=== PATIENT | female | born 1975 | race Caucasian/White ===

== ENCOUNTER 2020-03-26 13:14 | Emergency (ER) | payer OTHER ==
[~2020-03-26] VITALS: Ht 165.1 cm; Wt 127.0 kg
[2020-03-26] MEDS ORDERED: ONDANSETRON HCL INJ 2MG/ML 2ML 2 MG/ML VIAL ONE (13:59)
[2020-03-26] MEDS ORDERED: SODIUM CHLORIDE 0.9% 1000ML 1,000 ML ONE (13:59)
[2020-03-26] MEDS ORDERED: MORPHINE SULFATE 2 MG/ML SYR 1ML IV STA (14:06)
[2020-03-26] MEDS ORDERED: ONDANSETRON HCL INJ 2MG/ML 2ML 2 MG/ML VIAL IV NR (14:15)
[2020-03-26] MEDS ORDERED: MORPHINE SULFATE INJ 4 MG/ML INJ 1ML ONE (14:37)
--- NOTE | 2020-03-26 15:06 | Diagnostic Imaging Report ---
EXAMINATION: CXR 1 W - [facility] INDICATION: Pain, cough. COMPARISON: Same day CT abdomen/pelvis. FINDINGS: TUBES and LINES: None. LUNGS: Lungs are mildly hypoinflated. Mild patchy bibasilar opacities. Mild bronchial wall thickening. PLEURA: No pleural effusion or pneumothorax. HEART AND MEDIASTINUM: The cardiomediastinal silhouette is unremarkable. BONES AND SOFT TISSUES: No acute osseous lesion. Soft tissues are unremarkable. UPPER ABDOMEN: No free air under the diaphragm. IMPRESSION: Mild patchy bibasilar opacities, compatible with atypical/viral pneumonia seen on same day abdominal CT. Signed by: Dr. Sophie Mares MD on 03/26/2020 3:03 PM
--- NOTE | 2020-03-26 15:12 | Diagnostic Imaging Report ---
EXAM: CT Abdomen and Pelvis without contrast INDICATION: Abdominal Pain COMPARISON: None. TECHNIQUE: Abdomen and pelvis were scanned utilizing a multidetector helical scanner from the lung base to the pubic symphysis without administration of IV contrast. Coronal and sagittal reformations were obtained. Renal stone protocol was performed. IV CONTRAST: None. ORAL CONTRAST: None. COMPLICATIONS: None RADIATION DOSE: Total DLP: 1394 mGy*cm Estimated effective dose: (DLP x 0.015 x size factor) mSv CTDIvol has been reviewed. It is below the limits set by the Radiation Protocol Committee (RPC). FINDINGS: LINES and TUBES: None. LOWER THORAX: There are peripheral predominant patchy groundglass opacities in the bilateral dependent lungs. HEPATOBILIARY: No evidence of focal lesion. No biliary ductal dilation. GALLBLADDER: No radio-opaque stones or sludge. No wall thickening. SPLEEN: No splenomegaly. Calcified splenic granulomas. PANCREAS: No focal masses or ductal dilatation. ADRENALS: No adrenal nodules KIDNEYS/URETERS: No evidence of hydronephrosis, solid mass, or stone. Punctate left renal hypodensities are too small to characterize, but likely represent cysts. GI TRACT: No evidence of wall thickening or distension. Appendix is normal. Small hiatal hernia. PELVIC ORGANS/BLADDER: Unremarkable. LYMPH NODES: No lymphadenopathy. VESSELS: Unremarkable. PERITONEUM / RETROPERITONEUM: No free air or fluid. BONES AND SOFT TISSUES: Unremarkable. CONCLUSION: Findings of atypical/viral pneumonia. No acute CT abnormality in the abdomen or pelvis. Signed by: Dr. Sophie Mares MD on 03/26/2020 3:09 PM
--- NOTE | 2020-03-26 15:48 | Emergency Department Note ---
History of Present Illnes History of Present Illness Chief Complaint: COVID PUI History of Present Illness This is a 44 year old female . Chief Complaint Comment Reports that 5 family members have covid and she was tested at [facility] on the and is awaiting results. Pt now has headache, no smell or taste, sore throat, chest burning, congestion with nausea, vomiting and diarrhea since yesterday and it is getting worse today and she states that she feels terrible. Historian: Patient Arrival Mode: Car Onset (how long ago): day(s) (2) Location: epigastric Quality: dull Severity: moderate Onset quality: gradual Duration (how long): day(s) (2) Timing of current episode: constant Progression: waxing and waning Chronicity: new Context: Denies recent illness, Denies recent surgery, Denies recent im mobilization, Denies recent travel, Denies trauma/injury, Denies new medications, Denies hx of DVT/PE, Denies non-compliance w/ medications, Denies other Relieving factors: none Exacerbating factors: none Associated symptoms: Reports denies other symptoms Treatments prior to arrival: none Past Medical/Family History Physician Review I have reviewed the patient's past medical and family history. Any updates have been documented here. Past Medical History Recent Fever: No Clinical Suspicion of Infectio: No New/Unexplained Change in Ment: No Past Medical History: Asthma Past Surgical History: Hysterectomy, T&A Other Surgery: bilateral ACL repairs Social History Smoking Cessation: Never Smoker Counseling Performed: No Alcohol Use: None Any Illegal Drug Use: No TB Exposure/Symptoms: No Physically hurt or threatened: No Family History Family history of heart diseas: No Other Any Pre-Existing Lines (PICC,: No Is patient up to date on immun: Yes Last Flu: none Last Pneumovax: none Review of Systems Review of Systems Constitutional: Reports no symptoms EENTM: Reports no symptoms Cardiovascular: Reports no symptoms Respiratory: Reports no symptoms Gastrointestinal: Reports as per HPI Genitourinary: Reports no symptoms Musculoskeletal: Reports no symptoms Integumentary: Reports no symptoms Neurological: Reports no symptoms Psychological: Reports no symptoms Endocrine: Reports no symptoms Hematological/Lymphatic: Reports no symptoms Physical Exam Related Data Allergies: Coded Allergies: prednisone (Verified Allergy, Severe, anaphylaxis, 03/26/20) Uncoded Allergies: bandaids (Adverse Reaction, Intermediate, rash/hives, 03/26/20) Triage Vital Signs Vital Signs Date Time Temp Pulse Resp B/P (MAP) Pulse Ox O2 Delivery O2 Flow Rate FiO2 03/26/20 13:42 98.5 128 20 111/96 100 Vital signs reviewed: Yes Physical Exam CONSTITUTIONAL Constitutional: Present well-developed, Present well-nourished HENT HENT: Present normocephalic, Present atraumatic, Present oropharynx sagar ar/moist, Present nose normal HENT L/R: Present left ext ear normal, Present right ext ear normal EYES Eyes: Reports PERRL, Reports conjunctivae normal NECK Neck: Present ROM normal PULMONARY Pulmonary: Present effort normal, Present breath sounds normal CARDIOVASCULAR Cardiovascular: Present regular rhythm, Present heart sounds normal, Present capillary refill normal, Present normal rate GASTROINTESTINAL Abdominal: Present soft, Present bowel sounds normal, Present tender (epigastric) GENITOURINARY Genitourinary: Present exam deferred SKIN Skin: Present warm, Present dry MUSCULOSKELETAL Musculoskeletal: Present ROM normal NEUROLOGICAL Neurological: Present alert, Present oriented x 3, Present no gross motor or sensory deficits PSYCHOLOGICAL Psychological: Present mood/affect normal, Present judgement normal Results Laboratory Lab results reviewed: Yes Imaging Imaging results reviewed: Yes Assessment & Plan Medical Decision Making MDM gastritis obstruction Reassessment Reassessment time: 15:47 Reassessment better Assessment & Plan Final Impression: (1) Abdominal pain (2) Vomiting (3) Diarrhea Depart Disposition: HOME, SELF-CARE Last Vital Signs Date Time Temp Pulse Resp B/P (MAP) Pulse Ox O2 Delivery O2 Flow Rate FiO2 03/26/20 15:30 101 18 111/66 98 03/26/20 13:42 98.5 Medications in the ED Ondansetron HCl 4 mg STK-MED ONCE .ROUTE ; Start 03/26/20 at 13:59; Stop 03/26/20 at 13:54; Status DC Sodium Chloride 1,000 ml @ STK-MED ONCE .ROUTE ; Start 03/26/20 at 13:59; Stop 03/26/20 at 13:54; Status DC Ondansetron HCl 4 mg NOW IV Last administered on 03/26/20at 14:07; Admin Dose 4 MG; Start 03/26/20 at 14:15; Stop 03/26/20 at 15:59 Morphine Sulfate 2 mg NOW STAT IV Last administered on 03/26/20at 14:07; Admin Dose 2 MG; Start 03/26/20 at 14:06; Stop 03/26/20 at 14:16; Status DC Morphine Sulfate 4 mg STK-MED ONCE .ROUTE ; Start 03/26/20 at 14:37; Stop 03/26/20 at 14:33; Status DC SERVANDO SAMAYOA MD Mar 26, 2020 15:48
[2020-03-26 15:59] VITALS: BP 119/61
== END 2020-03-26 16:08 | disposition home or self-care (01) ==
LOC: FSED 13:14
DX: R10.13 Epigastric pain (principal); R11.2 Nausea with vomiting, unspecified; R19.7 Diarrhea, unspecified; J45.909 Unspecified asthma, uncomplicated
CPT/HCPCS: 71045; 74176; 80048; 80076; 81003; 81025; 85025; 96374; 96375; 99284; J2270 ×2; J2405; J7030

== ENCOUNTER → 2021-04-20 | Day surgery (SDC) | payer BC, OTHER ==
[~2021-04-20] MED LIST: BUPIVACAINE HCL 0.5% INJ 30 ML VIAL INJ ONE; FENTANYL CITRATE/PF 100MCG/2 ML INJ ONE; LIDOCAINE 1% W/EPINEPHRINE 20 ML VIAL ONE; LIDOCAINE HCL 2% LOCAL INJ 5 ML SDV VIAL INJ ONE; MELOXICAM7.5 MG PO; MIDAZOLAM HCL 2 MG/2 ML VIAL ONE; OMEPRAZOLE40 MG PO; ONDANSETRON HCL INJ 2MG/ML 2ML 2 MG/ML VIAL ONE; POVIDONE IODINE 0.05% 0.05 % ML PO ONE; PROAIR HFA INH8.5 GM INH; PROPOFOL IV EMULSION 10 MG/ML 20 ML VIAL ONE; ROCURONIUM BROMIDE 10 MG/ML 5ML VIAL IV ONE; SEVOFLURANE INHAL SOLN 250 ML PEN BTL ONE; SODIUM CHLORIDE 0.9% 50ML 100 ML ONE; SUCCINYLCHOLINE CHLORIDE 20 MG/ML 10ML VIAL ONE; SYMBICORT 16010.2 GM INH
[2021-04-20 15:05] VITALS: BP 123/81
== END | disposition home or self-care (01) ==
LOC: OR 10:25
PROVIDERS: ATTEND Orthopaedic Surgery
DX: S83.231A Complex tear of medial meniscus, current injury, right knee, initial encounter (principal); S83.281A Other tear of lateral meniscus, current injury, right knee, initial encounter; M22.41 Chondromalacia patellae, right knee; M17.12 Unilateral primary osteoarthritis, left knee; M67.51 Plica syndrome, right knee; J45.909 Unspecified asthma, uncomplicated; X58.XXXA Exposure to other specified factors, initial encounter; Z88.8 Allergy status to other drugs, medicaments and biological substances
CPT/HCPCS: 29882; J0330; J0690; J2001; J2405; J2704; J2250; J3010